=== PATIENT | female | born 1990 | race Caucasian/White ===

== ENCOUNTER → 2022-12-09 11:30 | Outpatient (BNVA) | payer BC, SELFPAY | PROVIDERS: PCP Nurse Practitioner; Visit Provider Internal Medicine Rheumatology | DX: Z79.899 Other long term (current) drug therapy (principal); Z11.1 Encounter for screening for respiratory tuberculosis; M19.90 Unspecified osteoarthritis, unspecified site; Z11.59 Encounter for screening for other viral diseases; M45.6 Ankylosing spondylitis lumbar region | CPT/HCPCS: 36415; 72100; 72202; 73130; 73630; 80076; 82306; 82565; 85025; 85651; 86200; 86480; 86704; 86803; 86812; 87340 ==